=== PATIENT | male | born 1995 | race Caucasian/White ===

== ENCOUNTER 2023-08-10 11:46 | Emergency (ER) | payer OTHER, SELFPAY ==
[2023-08-10 12:04] VITALS: BP 126/69; PULSE 58; RESP 19; TEMP 36.6; O2SAT 98; BMI 22.8
--- NOTE | 2023-08-10 13:03 | ED.DENTAL ---
HPI - Dental/Oral General Chief complaint: Dental/Oral Stated complaint: dental pain Time Seen by Provider: 08/10/23 12:57 Source: patient Mode of arrival: ambulatory Limitations: no limitations History of Present Illness HPI Narrative: 27-year-old male here with complaints of right upper and right lower dental pain for the last 1 week with no known injury or trauma. Patient does not have a dentist. He has been taking Tylenol, using a saltwater gargles with continued pain. No fevers, chills, difficulty breathing, difficulty swallowing. Onset (ago): month(s) Related Data Previous Rx's Medication Instructions Recorded amoxicillin 500 mg tablet 500 mg PO BID #14 tabs 08/10/23 ibuprofen 600 mg tablet 600 mg PO Q8H PRN pain #30 tabs 08/10/23 Allergies Allergy/AdvReac Type Severity Reaction Status Date / Time No Known Allergies Allergy Verified 08/10/23 12:04 Review of Systems Review of Systems: Yes all other systems are reviewed and are negative Constitutional: Constitutional: Reports no additional constitutional complaints, Denies body ache(s), Denies chills, Denies fever(s), Denies headache(s) and Denies weakness Eyes: Eyes: Reports no additional eye complaints and Denies change in vision ENT: Reports system reviewed and no additional complaints, except as documented, Reports dental pain, Denies dizziness, Denies headache(s), Denies nasal congestion, Denies nasal discharge and Denies neck pain Cardiovascular: Cardiovascular: Reports no additional cardiovascular complaints, Denies chest pain, Denies leg edema and Denies dyspnea Respiratory: Respiratory: Reports no additional respiratory complaints, Denies cough and Denies dyspnea Gastrointestinal: Gastrointestinal: Reports no additional gastrointestinal complaints, Denies abdominal pain, Denies diarrhea, Denies nausea and Denies vomiting Genitourinary: Genitourinary: Denies urinary incontinence Musculoskeletal: Musculoskeletal: Reports no additional musculoskeletal complaints, Denies back pain, Denies arthralgias, Denies joint swelling, Denies neck pain, Denies numbness and Denies tingling Integumentary/Breasts: Skin/Breast: Reports system reviewed and no additional complaints, except as docu and Denies rash Neurologic: Reports system reviewed and no additional complaints, except as documented, Denies Abnormal speech present, Denies dizziness, Denies headache(s), Denies numbness, Denies tingling and Denies weakness [facility] Past Medical History Attestation statement: The following information was validated with the patient. Source: old records reviewed and nursing notes reviewed Social History Social History Advance Directives: No Physical Exam Vital Signs: Vital Signs: Last Vital Signs Temp 98 F 08/10/23 12:04 Pulse 58 08/10/23 12:04 Resp 19 08/10/23 12:04 BP 126/69 08/10/23 12:04 Pulse Ox 98 08/10/23 12:04 O2 Del Method Room Air 08/10/23 12:04 BMI result Body Mass Index 22.8 Const: General: cooperative, healthy appearing, comfortable and no acute distress Orientation/consciousness: patient oriented x3 Limitations: no limitations HEENT: Other: No trismus there is caries in the right upper and lower molars. No erythema, swelling, fluctuance on the gum line. Head: Yes normal to inspection Ears: hearing grossly normal bilaterally and TM's normal bilaterally General nose exam: Normal external nose present Face and sinus: Yes normal facial exam Mouth: Normal oral and palatal mucosa present Teeth and gingiva: caries Throat: Yes posterior oropharynx normal, Yes tonsils normal and Yes uvula midline Eyes: General: appearance normal, both eyes and all related structures Pupils: Equal, round and reactive pupils present Neck: Neck: Yes normal visual inspection Chest: Chest palpation & inspection: normal inspection of the chest Resp: Effort & Inspection: normal respiratory effort Auscultation: clear to auscultation bilaterally Cardio: Rate: regular rate Rhythm: regular rhythm Peripheral pulses: Peripheral pulses 2+ throughout GI: Inspection: Yes normal to inspection Palpation (GI): Soft to palpation and nontender Auscultation: normal bowel sounds Back/Spine/Pelvis: Thoracic/Lumbar Spine: thoracic and lumbar spine normal to inspection Skin: General skin exam: no rashes or lesions noted Neuro: General: patient oriented x3, no focal motor deficits and normal sensation to monofilament Cranial nerves: Yes Equal, round and reactive pupils present Cognition (Neuro): normal cognition Speech: No Abnormal speech present Gait exam (Neuro): Normal gait present Motor exam (neuro): 5/5 motor strength present throughout Extrem: General: Yes normal to inspection Medical Decision Making Medical Decision Making MDM Narrative: 27-year-old male here with complaints of right upper and right lower dental pain for the last 1 week with no known injury or trauma. Patient does not have a dentist. He has been taking Tylenol, using a saltwater gargles with continued pain. No fevers, chills, difficulty breathing, difficulty swallowing. There are caries on exam with no evidence of dental abscess, cellulitis, Johnny's angina patient tolerating secretions with no difficulty will be discharged home with antibiotic, and said with recommendations to follow-up with dental clinic. Differential Diagnosis Differential Diagnoses: The differential diagnosis associated with the presentation includes No evidence of Johnny's anginam dental abscess cellulitis there is dental caries Admission/Observation Consideration of admission/observation: Escalation of care including admission/observation considered no need for IV antibiotics and or admission Tests considered The following testing was considered but not selected: no evidence of dental abscess, Johnny's angina, cellulitis necessitating a CT facial bones Prescription Management I considered prescription management with: Antibiotic see discussion above Discharge Plan Discharge Clinical Impression: Toothache Patient Disposition: Home, Self-Care Instructions: Toothache (ED) Additional Instructions: saltwater gargles Soft foods Establish a dentist to follow up with them Prescriptions: New amoxicillin 500 mg tablet 500 mg PO BID Qty: 14 0RF ibuprofen 600 mg tablet 600 mg PO Q8H PRN (Reason: pain) Qty: 30 0RF Referrals: Physician,None [Primary Care Provider] - 1 week Interventions: ED Discharge Assessment Last Done: 08/10/23 13:13 Discharge Date/Time: 08/10/23 13:13
== END 2023-08-10 13:13 | disposition home or self-care (01) ==
PROVIDERS: Emergency Provider Emergency Medicine
DX: K08.89 Other specified disorders of teeth and supporting structures (principal)
CPT/HCPCS: 99282; 99283

== ENCOUNTER 2023-09-06 18:31 | Emergency (ER) | payer OTHER, SELFPAY ==
[2023-09-06 19:38] VITALS: BP 131/77; PULSE 82; RESP 18; TEMP 37.2; O2SAT 99; BMI 22.0
--- NOTE | 2023-09-06 19:38 | ED.UPPEXIN ---
HPI - Extremity Injury (Upper) General Chief Complaint: Extremity Injury, Upper Stated Complaint: RT index finger inj Time Seen by Provider: 09/06/23 21:07 Related Data Previous Rx's Medication Instructions Recorded amoxicillin 500 mg tablet 500 mg PO BID #14 tabs 08/10/23 ibuprofen 600 mg tablet 600 mg PO Q8H PRN pain #30 tabs 08/10/23 Allergies Allergy/AdvReac Type Severity Reaction Status Date / Time No Known Allergies Allergy Verified 09/06/23 19:38 Physical Exam Vital Signs: Vital Signs: Last Vital Signs Temp 98.2 F 09/06/23 20:59 Pulse 86 09/06/23 20:59 Resp 16 09/06/23 20:59 BP 136/78 09/06/23 20:59 Pulse Ox 98 09/06/23 20:59 O2 Del Method Room Air 09/06/23 20:59 BMI result Body Mass Index 22.0 Course Course Course Narrative: This is an RME: Additional HPI, ROS, PE not included below will be deferred to primary provider. Patient is a 27-year-old male, right-hand dominant, who presents emergency department for evaluation of Right index finger injury 6 weeks ago. Smashed finger with a sledgehammer. Has been wearing a splint, but pain and swelling has persisted. Unable to flex the digit, held in full extension. Plan: XR Discharge Plan Discharge Prescriptions: No Action amoxicillin 500 mg tablet 500 mg PO BID Qty: 14 0RF ibuprofen 600 mg tablet 600 mg PO Q8H PRN (Reason: pain) Qty: 30 0RF
[2023-09-06 20:59] VITALS: BP 136/78; PULSE 86; RESP 16; TEMP 36.8; O2SAT 98
--- NOTE | 2023-09-06 21:05 | PC.NURSE ---
pt comes in today after hitting right pointer finger w/ sledge hammer at work 6 weeks ago. swelling/erythema noted to affected site. pt verbalizes that he has not seen a provider since injury. cms intact. peripheral pulses palpable. pt states he has numbness/tingling in right finger. pt denies any other sx at this time.
--- NOTE | 2023-09-06 21:07 | PC.NURSE ---
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
--- NOTE | 2023-09-06 21:14 | ED.EXTPRO ---
HPI - Extremity Problem General Chief complaint: Extremity Injury, Upper Stated complaint: RT index finger inj Time Seen by Provider: 09/06/23 21:07 Source: patient Mode of arrival: ambulatory Limitations: no limitations History of Present Illness HPI Narrative: Patient is a 27-year-old male, right-hand dominant, who presents emergency department for evaluation of Right index finger injury 6 weeks ago (July 30). Smashed finger with a sledgehammer. Has been wearing a splint, but pain and swelling has persisted. Unable to flex the digit, held in full extension. Related Data Previous Rx's Medication Instructions Recorded amoxicillin 500 mg tablet 500 mg PO BID #14 tabs 08/10/23 ibuprofen 600 mg tablet 600 mg PO Q8H PRN pain #30 tabs 08/10/23 Allergies Allergy/AdvReac Type Severity Reaction Status Date / Time No Known Allergies Allergy Verified 09/06/23 19:38 Review of Systems Review of Systems: all other systems are reviewed and are negative Constitutional: Reports as per HPI and Reports no additional constitutional complaints Eyes: Reports as per HPI and Reports no additional eye complaints Reports system reviewed and no additional complaints, except as documented Cardiovascular: Reports as per HPI and Reports no additional cardiovascular complaints Respiratory: Reports as per HPI and Reports no additional respiratory complaints Gastrointestinal: Reports as per HPI and Reports no additional gastrointestinal complaints Genitourinary: Reports no additional female genitourinary complaints Musculoskeletal: Reports no additional musculoskeletal complaints Skin/Breast: Reports system reviewed and no additional complaints, except as docu Psychiatric: Reports no additional psychiatric complaints Endocrine: Reports no additional endocrine complaints Hematologic/Lymphatic: Reports no additional hematologic/lymphatic complaints Allergic/Immunologic: Reports no additional allergic/immunologic complaints Reports system reviewed and no additional complaints, except as documented and Reports Abnormal speech present Physical Exam Vital Signs: Vital Signs: Last Vital Signs Temp 98.2 F 09/06/23 20:59 Pulse 86 09/06/23 20:59 Resp 16 09/06/23 20:59 BP 136/78 09/06/23 20:59 Pulse Ox 98 09/06/23 20:59 O2 Del Method Room Air 09/06/23 20:59 BMI result Body Mass Index 22.0 Vital signs have been reviewed and appear to be correct. Blood pressure elevated. Heart rate normal. Respiratory rate normal. Temperature normal. Oxygen saturation normal. Appearance: Alert. Oriented X3. No acute distress. Head: Normal external exam. Normocephalic. Atraumatic. No [place] signs noted. No raccoon eyes noted Eyes: PERRLA. EOMI. Conjunctiva and sclera normal. Eyelids normal. ENT: TM's Normal. Pharynx normal. Uvula midline. Moist mucous membranes. No trismus noted. No drooling noted. No muffled voice noted. Neck: Normal inspection. Neck supple. FROM. No adenopathy. Thyroid Normal. No meningeal signs. No neck mass noted. CVS: Normal heart rate and rhythm. Heart sound normal. No murmurs noted. Pulses normal throughout. Respiratory: No respiratory distress. Painless inspiration. Breath sounds normal. No wheezes/rales/rhonchi noted. Chest nontender. No accessory muscle usage noted or decreased air movement noted. Abdomen: Soft and nontender. Bowel sounds normal in all 4 quadrants. No distention noted. No organomegaly noted. No visible injury noted. Back: No CVA tenderness. Full range of motion noted. Skin: Skin warm and dry. Normal skin color. Normal skin turgor. No rashes/lesions/lacerations noted. Extremities: right hand: Index finger held in extension cannot flex PIP or DIP joints. no palpable deformity or step of the finger, no laceration, cap refill is less than 2 seconds. sensation light touch and 2 point discrimination is intact on the finger. Neuro: Oriented X 3. Cranial nerve exam: II-XII are grossly intact No motor deficit. No sensory deficit. Reflexes normal. Course Course Course Narrative: right index injury 6 weeks ago at work likely tendon injury. Will send the patient to Dr. Hylton. Medical Decision Making Differential Diagnosis Differential Diagnoses: The differential diagnosis associated with the presentation includes ( right index fracture, dislocation, ligamentous injury.) Admission/Observation Consideration of admission/observation: Escalation of care including admission/observation considered Independent Interpretation I performed an independent interpretation of an: Plain X-Ray ( Right hand: No acute fracture) Radiology Impression Discussion of test interpretation with radiology: I have reviewed the radiologist's reading. (No acute fracture or malalignment. Mild soft tissue swelling around the index digit. ) Discharge Plan Discharge Clinical Impression: Finger sprain Patient Disposition: Home, Self-Care Instructions: Finger Sprain (ED) Prescriptions: No Action amoxicillin 500 mg tablet 500 mg PO BID Qty: 14 0RF ibuprofen 600 mg tablet 600 mg PO Q8H PRN (Reason: pain) Qty: 30 0RF Referrals: Lisset Hylton MD [Physician] -
== END 2023-09-06 21:50 | disposition home or self-care (01) ==
PROVIDERS: Emergency Provider Emergency Medicine
DX: S63.610A Unspecified sprain of right index finger, initial encounter (principal); W22.8XXA Striking against or struck by other objects, initial encounter; Y93.9 Activity, unspecified; Y92.9 Unspecified place or not applicable; Y99.9 Unspecified external cause status
CPT/HCPCS: 73120; 99283

== ENCOUNTER 2023-09-17 12:47 | Outpatient (AMB) | payer OTHER, SELFPAY ==
--- NOTE | 2023-09-17 13:10 | A.OFFVIS_ITS ---
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 States on Jul 30 2023 while working, he smashed his finger with a sledgehammer. Seen in ED where his finger was splinted. Currently he has stiffness and pain if he removes his splint more than 1 hour. Allergies No Known Allergies Allergy (Verified 09/17/23 13:28) HPI DESIGN TEACHER-right index FC, dislocation, ligamentous injury HPI Details Brennon is a 27 year old right hand dominant man who presents with complaints of right index finger pain and swelling, S/P crush injury. He struck his index finger with a sledgehammer on ~07/30/23, and did not seek treatment until he was seen in the ED on 09/06/23. He complains of pain, swelling, and stiffness in his right index finger. he says he is unable to bend his finger since the injury and has been wearing a finger splint full-time since his injury. He was fitted for a new finger splint while in the ED, and says he has increased pain & stiffness if he removes the splint longer than ~1 hour He denies any numbness but says he feels slight pins & needles when touching his finger Review of Systems Const All systems reviewed & are unremarkable except as noted in HPI and below Physical Exam Vital Signs: BMI result Body Mass Index 22.0 Const General: cooperative, healthy appearing and no acute distress Orientation/consciousness: patient oriented x3 HEENT Head: Yes normocephalic and Yes atraumatic Eyes EOM: EOMs intact bilaterally Resp Effort & Inspection: normal respiratory effort and able to speak in complete sentences Cardio Jugular venous distension: no JVD Skin General skin exam: turgor normal Rashes: no rashes Neuro General: patient oriented x3 Extrem Other: Evaluation of Right Upper Extremity: The patient is alert, oriented, and in no acute distress Neuro: Median, Ulnar, Radial nerves motor and sensory intact and sensation is normal to the tips of all digits Vascular: Cap refill brisk ROM: He is seen today with his index finger splinted and held in full extension After removing his splint there was some atrophy of the finger soft tissues, likely from 24/7 splinting for ~6 weeks Initially He demonstrated only ~45 degrees of flexion at the MCP joint with no active flexion at the PIP or DIP joints We worked on ROM exercises today in clinic, and before leaving clinic he was able to actively bring his fingers close to a fist and touch the thenar mass with his index fingertip. He now has good PIP joint motion and still had some stiffness in the DIP joint. Demonstrated good active FDS & FDP tendon function before leaving clinic I did want to push him any further today, and he assured me he would work on these range of motion exercises at home. Skin: No lacerations or abrasions. General: No Ecchymosis. No Erythema or evidence of infection. Radiographs: 3 views of the right hand, with attention to the index finger, from 09/06/23 were reviewed by me today in clinic. They show no fractures or dislocations. Psych Appearance: grossly normal Affect: normal affect Attitude: cooperative Office Procedures Fracture Care Details: No fracture, manual therapy 15+ minutes [id number] Fracture Billing Code: Fracture Billing Code Assessment & Plan Assessment & Plan (1) Stiffness of finger joint of right hand: Code(s): M25.641 - Stiffness of right hand, not elsewhere classified Plan Assessment & Plan: 1 Right index finger stiffness S/P crush injury, DOI: ~07/30/23 from a sledgehammer Followed by ~7 weeks 24/7 splinting Good active FDP & FDS tendon function demonstrated after working on range of motion exercises in clinic I educated him about this condition I discussed operative and non-operative treatment options He is to completely discontinue his finger splint at this time He will work on gentle ROM exercises at home I ordered OT hand therapy to work on ROM and normalizing hand function He can follow up prn Greater than 15 minutes was spent working on hand therapy exercises in clinic today. Scribed for Lisset Hylton MD by Kwasi Barbosa certified court/medical interpreter, on 09/17/23 at 1:40 PM, EST. Orders: Orders OT Evaluation and Treatment Today M25.641 - Stiffness of right hand, not elsewhere classified Coding Level of Care Code New Pt Level 3 (85651) Diagnoses Stiffness of finger joint of right hand M25.641 CPT Codes Fracture Care - Fracture Billing Code: Fracture Billing Code ([id number])
[2023-09-17 13:11] VITALS: BMI 22.0
== END 2023-09-17 13:55 | disposition home or self-care (01) ==
PROVIDERS: Visit Provider Orthopaedic Surgery
DX: M25.641 Stiffness of right hand, not elsewhere classified (principal)
CPT/HCPCS: 99203

== ENCOUNTER → 2023-09-17 12:47 | Outpatient (BNVA) | payer OTHER, SELFPAY | PROVIDERS: Visit Provider Orthopaedic Surgery ==

== ENCOUNTER 2025-07-30 13:45 | Emergency (ER) | payer SELFPAY ==
[2025-07-30 14:01] VITALS: BP 130/64; PULSE 70; RESP 16; TEMP 36.4; O2SAT 100; BMI 23.6
--- NOTE | 2025-07-30 14:10 | ED_ITS ---
HPI - General Adult General Chief complaint: Skin/Abscess/Foreign Body Stated complaint: infection on back of leg Time Seen by Provider: 07/30/25 14:08 Source: patient, RN notes reviewed and old records reviewed Mode of arrival: ambulatory Limitations: no limitations History of Present Illness ED Provider: Messi CLEMENTS narrative: 29-year-old male presents for evaluation of in formalin bump to his left leg. He 1st noticed yesterday. Areas painful can touch his knee. There are no open wounds or anything. 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 His pain is mild, 2/10 Related Data Previous Rx's ?Medication ?Instructions ?Recorded ibuprofen 600 mg tablet 600 mg PO Q8H PRN pain #30 t abs 08/10/23 doxycycline hyclate 100 mg tablet 100 mg PO BID #14 ta bs 07/30/25 Allergies Allergy/AdvReac Type Severity Reaction Status Date / Time No Known Allergies Allergy Verified 07/30/25 14:02 Review of Systems 2 Constitutional: Constitutional: Denies body ache(s), Denies chills, Denies fever(s) and Denies headache(s) Eyes: Eyes: Denies blurry vision ENT: Denies dizziness, Denies dry mouth and Denies headache(s) Cardiovascular: Cardiovascular: Denies chest pain and Denies dyspnea on exertion Respiratory: Respiratory: Denies cough and Denies dyspnea on exertion Gastrointestinal: Gastrointestinal: Denies abdominal pain Integumentary/Breasts: Skin/Breast: Reports erythema and Reports rash Neurologic: Denies dizziness and Denies headache(s) Psychiatric: Psychiatric: Denies anxiety PMFSH Social History Social History Advance Directives: No Advance Directives Information Provided: No Physical Exam ED Vital Signs: Vital Signs - 24 hr 07/30/25 14:01 Temperature 97.6 F Pulse Rate 70 Respiratory Rate 16 Blood Pressure 130/64 Pulse Oximetry 100 Oxygen Delivery Method Room Air BMI result Body Mass Index 23.6 Const General: healthy appearing, comfortable, no acute distress, alert and awake Nutritional Appearance: well nourished Orientation/consciousness: patient oriented x3 HENMT Head: Yes normocephalic and Yes atraumatic Throat: Yes posterior oropharynx normal Eyes Eyelids: Yes eyelids normal Conjunctivae: conjunctivae normal Sclerae: sclerae normal Corneas: corneas normal Pupils: Equal, round and reactive pupils present EOM: EOMs intact bilaterally Neck Neck: Yes full ROM Resp Effort & Inspection: normal respiratory effort, able to speak in complete sentences and not labored Skin Other: There is an approximately 2 cm area of erythema with well demarcated borders. The central area is indurated, there is no fluctuance. No open wounds or lesions. General skin exam: elasticity normal Neuro General: patient oriented x3 Cranial nerves: Yes Equal, round and reactive pupils present and Yes Bilaterally intact EOM present Cognition (Neuro): normal cognition Extrem Other: Moving all extremities well without any obvious deformities Medical Decision Making Medical Decision Making MDM Narrative: 29-year-old healthy male presents for evaluation of a small area of redness to his left leg. This is an atraumatic area. There appears to be a mild cellulitis or folliculitis has been palpation. 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 There is some concern for Lyme disease. We will treat his cellulitis with doxycycline and warm compresses. Labs were drawn to test for Lyme disease. Clinically there was no abscess requiring drainage and no evidence of systemic infection Differential Diagnosis Differential Diagnoses: The differential diagnosis associated with the presentation includes Cellulitis Folliculitis Lyme disease Erythema migrans SSS Lab Data 07/30/25 14:16 07/30/25 14:16 Labs: Lab Results 07/30/25 Range/Units 14:16 WBC 7.3 (4.8-10.8) X10*3/uL RBC 4.93 (4.60-5.80) X10*6/uL Hgb 15.1 (14.0-18.0) g/dl Hct 44.4 (42.0-52.0) % MCV 90.1 (80.0-98.0) fL MCH 30.6 (27.0-33.0) pg MCHC 34.0 (31.0-36.0) g/dl RDW 12.2 (11.0-16.0) % Plt Count 232 (160-400) X10*3/uL MPV 10.7 (9.4-12.4) fL Immature Gran % (Auto) 0.1 (0.0-0.4) % Neut % (Auto) 49.2 (45-73) % Lymph % (Auto) 40.0 (20-40) % [place] % (Auto) 7.4 (2-11) % Eos % (Auto) 2.6 (0-4) % Baso % (Auto) 0.7 (0-2) % Lymph # (Auto) 2.9 (1.2-4.9) X10*3/uL [place] # (Auto) 0.5 (0.1-1.2) X10*3/uL Eos # (Auto) 0.2 (0.0-0.4) X10*3/uL Baso # (Auto) 0.1 (0.0-0.2) X10*3/uL Abs Immat Gran (auto) 0.01 (0.00-0.03) X10*3/uL Absolute Neuts (auto) 3.6 (2.0-8.3) x10*3/uL Absolute Nucleated RBC 0.000 (0.0-0.012) X10*3/uL Nucleated RBC % (auto) 0.0 (0.0-0.2) /100WBC Discharge Plan Discharge Clinical Impression: Cellulitis of left leg Patient Disposition: Home, Self-Care Instructions: Cellulitis (ED) Additional Instructions: You appear to have a mild skin infection called cellulitis. There was no evidence of abscess and needs to be drained. Given that you work outside you were tested for Lyme disease. The doxycycline will cover mild skin infections as well as Lyme disease but we will call you if you are Positive for Lyme disease Follow up with your primary doctor, return for new or worsening symptoms Prescriptions: New doxycycline hyclate 100 mg tablet 100 mg PO BID Qty: 14 0RF No Action ibuprofen 600 mg tablet 600 mg PO Q8H PRN (Reason: pain) Qty: 30 0RF Print Language: [place]
[2025-07-30 14:22] LABS: MANUAL DIFF FLAG NO
[2025-07-30 14:25] LABS: Hematocrit 44.4 % (42.0-52.0); Hemoglobin 15.1 g/dl (14.0-18.0); Imm Gran Abs Auto 0.01 X10*3/uL (0.00-0.03); Imm Gran Pct Auto 0.1 % (0.0-0.4); Lymphocytes Absolute Auto 2.9 X10*3/uL (1.2-4.9); Mean Corpuscular HGB Conc 34.0 g/dl (31.0-36.0); Mean Corpuscular Hemoglobin 30.6 pg (27.0-33.0); Mean Corpuscular Volume 90.1 fL (80.0-98.0); NRBC Abs Auto 0.000 X10*3/uL (0.0-0.012); NRBC Pct Auto 0.0 /100WBC (0.0-0.2); Platelet Count 232 X10*3/uL (160-400); Red Blood Count 4.93 X10*6/uL (4.60-5.80); White Blood Count 7.3 X10*3/uL (4.8-10.8)
--- OUTSIDE RECORDS SUMMARY | 2025-07-30 14:25 | XMS_ITS ---
Author Name [facility] Organization Unknown Care Team Organization Name Specialty Phone Email Start Date End Da lakai [facility] 02/06/2023 07/20/2024 [facility] 10/09/2022 07/20/20 24
[2025-07-30 14:43] LABS: Anion Gap 13 (12-20); Blood Urea Nitrogen 15 mg/dL (9-16); Calcium 9.4 mg/dL (8.4-10.2); Carbon Dioxide 25 mmol/L (22-29); Chloride 107 mmol/L (96-108); Creatinine Clr Calc Pharmacy 145.3; Estimated Glomerular Filt Rate > 60; Potassium 4.0 mmol/L (3.3-5.1); Sodium 141 mmol/L (135-145)
[2025-07-30 15:12] VITALS: BP 130/64; PULSE 70; RESP 16; TEMP 36.4; O2SAT 100
[2025-07-31 06:33] LABS: Lyme Abs Screen <0.90 index
[2025-07-31 11:19] LABS: Lyme Disease DNA PCR NOT DETECTED (NOT DETECTED)
== END 2025-07-30 15:12 | disposition home or self-care (01) ==
PROVIDERS: Physician Assistant; Emergency Provider Emergency Medicine
DX: L03.116 Cellulitis of left lower limb (principal); M79.605 Pain in left leg
CPT/HCPCS: 36415; 80048; 85025; 86617; 86618; 99282; 99283

== ENCOUNTER 2025-09-14 17:16 | Emergency (ER) | payer SELFPAY ==
--- NOTE | ~2025-09-14 | XR_ITS ---
CLINICAL HISTORY: chest pain 2 view chest x-ray Comparison: None provided Findings: No consolidation or effusion. Heart size is normal. No acute fracture. IMPRESSION: 1. No acute findings. This document has been electronically signed by: Samira Anaya MD on 09/14/2025 18:12:19
--- NOTE | 2025-09-14 17:42 | ED_ITS ---
HPI - General Adult General Chief complaint: Chest Pain Stated complaint: Difficulty breathing, hurts to breath Time Seen by Provider: 09/14/25 21:56 Source: patient Mode of arrival: ambulatory Limitations: no limitations History of Present Illness ED Provider: Timur Lemus HPI narrative: 29 yold male present s to the ED for chest pain that is worse on movement and inspiration for the past 3 days. patient does heavy lifting at work. patient denies any leg swelling, calf pain, recent surgyery or recent travel. Related Data Previous Rx's ?Medication ?Instructions ?Recorded ibuprofen 600 mg tablet 600 mg PO Q8H PRN pain #30 t abs 08/10/23 doxycycline hyclate 100 mg capsule 100 mg PO BID #14 c aps 07/30/25 doxycycline hyclate 100 mg tablet 100 mg PO BID #14 ta bs 07/30/25 naproxen 500 mg tablet 500 mg PO BID PRN pain #14 t abs 09/15/25 Allergies Allergy/AdvReac Type Severity Reaction Status Date / Time No Known Allergies Allergy Verified 09/14/25 17:44 Review of Systems 2 Review of Systems: Pleurisy ,chest pain, chest pain on movement of torso Yes all other systems are reviewed and are negative [facility] Social History Social History Smoked in Last 30 Days: No Use of substances other than those prescribed or required for medical reasons: Yes Substance Use Type: IV Drugs Advance Directives: No Advance Directives Information Provided: No Do you have a plan to hurt others: No Plan Physical Exam ED Vital Signs: Vital Signs - 24 hr 09/14/25 17:43 09/14/25 21:41 09/15/25 00:42 Temperature 98 F 98.2 F 98.0 F Pulse Rate 61 81 62 Respiratory Rate 18 16 Blood Pressure 149/80 H 141/82 H 118/76 Pulse Oximetry 100 100 98 Oxygen Delivery Method Room Air Room Air Room Air BMI result Body Mass Index 24.3 Const General: cooperative, healthy appearing, comfortable, no acute distress, well developed, alert, awake and Physically active Orientation/consciousness: patient oriented x3 HENMT Head: Yes normal to inspection, Yes No palpable skull fracture present, Yes normocephalic and Yes atraumatic Eyes General: appearance normal, both eyes and all related structures Neck Neck: Yes normal visual inspection, Yes full ROM, Yes no lymphadenopathy, Yes no meningeal signs, Yes trachea midline, Yes supple, No anterior neck swelling and No tender Chest Chest palpation & inspection: normal inspection of the chest and normal palpation of entire chest wall Resp Effort & Inspection: normal respiratory effort and able to speak in complete sentences Auscultation: clear to auscultation bilaterally Cardio Jugular venous distension: no JVD Heart sounds: S1 normal heart sound present and S2 normal heart sound present GI Inspection: Yes normal to inspection Palpation (GI): Soft to palpation, not firm, nontender, no guarding and not rigid General: Yes no CVA tenderness Back/Spine/Pelvis Back: no CVA tenderness and No back tenderness Skin General skin exam: no rashes or lesions noted, elasticity normal and turgor normal Neuro General: patient oriented x3, gait normal, tone normal, moves all extremities, Normal light touch and pain sensation, no meningeal signs, no focal motor deficits and CN's II-XI intact bilaterally Extrem Other: bilateral lower extremity negative for swelling, pitting edmea, or calf tenderness. General: Yes normal to inspection, Yes full ROM and Yes capillary refill normal Psych Appearance: grossly normal, well kempt and not disheveled Course Course Course Narrative: This is a rapid medical exam performed by Art Jauregui NP: Additional HPI, ROS, PE not included below will be deferred to primary provider. Patient is a 29y/o M presenting with complaint of upper chest pain since Saturday. Progressively worsening, goes to back, worse with leaning forward. Plan: EKG, labs, CXR Medications Administered Discontinued Medications Generic Name Dose Route Start Last Admin Trade Name Benjamin PRN Reason Stop Dose Admin Ibuprofen 800 mg 09/15/25 00:20 09/15/25 00:27 Ibuprofen 800 Mg Tablet PO 09/15/25 00:21 800 mg ONCE ONE Administration Medical Decision Making Medical Decision Making [facility] Narrative: [age] year male presents to ED for chest wall pain that is worse on movement and also onto inspiration. Patient denies any leg swelling, calf pain, coughing up blood, recent long travel or recent surgery. Patient denies any trauma. 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 X-ray negative pneumonia. Troponin is negative. D-dimer negative. Perc score is 0. Not suspecting CHF, [place], PE, pericarditis, myocarditis, or any other life-threatening etiology. Differential Diagnosis Differential Diagnoses: The differential diagnosis associated with the presentation includes (Patient is) Admission/Observation Consideration of admission/observation: Escalation of care including admission/observation considered Lab Data MDM Lab Attestation statement: I reviewed the patient's lab results. 09/14/25 18:18 09/14/25 18:18 Labs: Lab Results 09/14/25 09/14/25 Range/Units 18:18 22:35 WBC 10.8 (4.8-10.8) X10*3/uL RBC 5.17 (4.60-5.80) X10*6/uL Hgb 15.5 (14.0-18.0) g/dl Hct 46.5 (42.0-52.0) % MCV 89.9 (80.0-98.0) fL MCH 30.0 (27.0-33.0) pg MCHC 33.3 (31.0-36.0) g/dl RDW 11.9 (11.0-16.0) % Plt Count 270 (160-400) X10*3/uL MPV 10.8 (9.4-12.4) fL Immature Gran % (Auto) 0.4 (0.0-0.4) % Neut % (Auto) 64.3 (45-73) % Lymph % (Auto) 26.5 (20-40) % Sioux % (Auto) 7.6 (2-11) % Eos % (Auto) 0.8 (0-4) % Baso % (Auto) 0.4 (0-2) % Lymph # (Auto) 2.9 (1.2-4.9) X10*3/uL Sioux # (Auto) 0.8 (0.1-1.2) X10*3/uL Eos # (Auto) 0.1 (0.0-0.4) X10*3/uL Baso # (Auto) 0.0 (0.0-0.2) X10*3/uL Abs Immat Gran (auto) 0.04 H (0.00-0.03) X10*3/uL Absolute Neuts (auto) 6.9 (2.0-8.3) x10*3/uL Absolute Nucleated RBC 0.000 (0.0-0.012) X10*3/uL Nucleated RBC % (auto) 0.0 (0.0-0.2) /100WBC PT 11.6 (10.9-12.4) SEC INR 1.0 (0.9-1.1) D-Dimer High Sensitivty < 150 NG/ML Sodium 143 (135-145) mmol/L Potassium 3.9 (3.3-5.1) mmol/L Chloride 106 (96-108) mmol/L Carbon Dioxide 29 (22-29) mmol/L Anion Gap 12 (12-20) BUN 8 L (9-16) mg/dL Creatinine 0.84 (0.5-1.4) mg/dL Estim Creat Clear Calc 125.5 Estimated GFR > 60 Random Glucose 86 (60-115) mg/dL Calcium 10.0 D (8.4-10.2) mg/dL Total Bilirubin 0.4 (0.0-1.0) mg/dL AST 31 (5-37) U/L ALT 32 (0-40) U/L Alkaline Phosphatase 54 (39-117) U/L Troponin I High Sens < 2.7 < 2.7 (<3.5-35.0) ng/L Total Protein 7.7 (6.5-8.0) g/dL Albumin 5.3 H (3.5-5.0) g/dL Independent Interpretation I performed an independent interpretation of an: EKG (Sinus Adonis) and Plain X- Ray Radiology Impression Discussion of test interpretation with radiology: I have reviewed the radiologist's reading. Independent Historian Clinical information obtained from an independent historian. History obtained from or confirmed by: Other (Patient) Discharge Plan Discharge Clinical Impression: Chest pain Patient Disposition: Home, Self-Care Instructions: Chest Pain (ED), Chest Wall Pain (ED) Additional Instructions: Labs EKG imaging came back reassuring. Recommend follow up with primary care provider. Return to the ED immediately for any coughing up blood, rash, leg swelling, calf pain, shortness of breath on inspiration, dizziness, weakness, or any other concerning symptoms. Prescriptions: New naproxen 500 mg tablet 500 mg PO BID PRN (Reason: pain) Qty: 14 0RF No Action doxycycline hyclate 100 mg tablet 100 mg PO BID Qty: 14 0RF doxycycline hyclate 100 mg capsule 100 mg PO BID Qty: 14 0RF ibuprofen 600 mg tablet 600 mg PO Q8H PRN (Reason: pain) Qty: 30 0RF Stand Alone Forms: Work/School Release Interventions: ED Discharge Assessment Last Done: 09/15/25 00:42 Discharge Date/Time: 09/15/25 00:43 Print Language: Belarusian
[2025-09-14 17:43] VITALS: BP 149/80; PULSE 61; RESP 18; TEMP 36.6; O2SAT 100; BMI 24.3
--- NOTE | 2025-09-14 17:43 | ECG_ITS ---
Test Reason : CP Blood Pressure : */* mmHG Vent. Rate : 59 BPM Atrial Rate : 59 BPM P-R Int : 146 ms QRS Dur : 100 ms QT Int : 400 ms P-R-T Axes : 53 45 46 degrees QTcB Int : 396 ms Sinus bradycardia Incomplete right bundle branch block Borderline ECG No previous ECGs available Referred By: Lisa Jauregui Electronically Signed By: Daniel Marcelino
[2025-09-14 18:27] LABS: MANUAL DIFF FLAG NO
[2025-09-14 18:30] LABS: Hematocrit 46.5 % (42.0-52.0); Hemoglobin 15.5 g/dl (14.0-18.0); Imm Gran Abs Auto 0.04 X10*3/uL (0.00-0.03); Imm Gran Pct Auto 0.4 % (0.0-0.4); Lymphocytes Absolute Auto 2.9 X10*3/uL (1.2-4.9); Mean Corpuscular HGB Conc 33.3 g/dl (31.0-36.0); Mean Corpuscular Hemoglobin 30.0 pg (27.0-33.0); Mean Corpuscular Volume 89.9 fL (80.0-98.0); NRBC Abs Auto 0.000 X10*3/uL (0.0-0.012); NRBC Pct Auto 0.0 /100WBC (0.0-0.2); Platelet Count 270 X10*3/uL (160-400); Red Blood Count 5.17 X10*6/uL (4.60-5.80); White Blood Count 10.8 X10*3/uL (4.8-10.8)
[2025-09-14 18:43] LABS: INTERNATIONAL NORM RATIO 1.0 (0.9-1.1); Prothrombin Time 11.6 SEC (10.9-12.4)
[2025-09-14 19:03] LABS: Alanine Aminotransferase 32 U/L (0-40); Albumin Level 5.3 g/dL (3.5-5.0); Alkaline Phosphatase 54 U/L (39-117); Anion Gap 12 (12-20); Aspartate Amino Transferase 31 U/L (5-37); Blood Urea Nitrogen 8 mg/dL (9-16); Calcium 10.0 mg/dL (8.4-10.2); Carbon Dioxide 29 mmol/L (22-29); Chloride 106 mmol/L (96-108); Creatinine Clr Calc Pharmacy 125.5; Estimated Glomerular Filt Rate > 60; Potassium 3.9 mmol/L (3.3-5.1); Sodium 143 mmol/L (135-145); Total Protein 7.7 g/dL (6.5-8.0)
[2025-09-14 19:20] LABS: Troponin-I High Sensitivity < 2.7 ng/L (<3.5-35.0)
[2025-09-14 21:41] VITALS: BP 141/82; PULSE 81; TEMP 36.8; O2SAT 100
--- OUTSIDE RECORDS SUMMARY | 2025-09-14 21:56 | XMS_ITS | Clinical Summary ---
Author Organization [facility] Address [address] [place] [address] Care Team Providers Care Thread Trimmer Name Role Phone Fred Mcgee MD Primary Care Provider Allergies No known active allergies Medications Medication Sig Dispensed Refills Start Date End Date Status Clotrimazole 1 % Ointment Apply 0.5 Inches topically 2 times daily. 14 g 0 10/12/2016 Active ketoconazole (NIZORAL) 2 % shampoo Apply to affected area, leave on for 5 minutes and rinse clean. May repeat dose 3 times 120 mL 0 02/12/2020 Active aluminum chloride (DRYSOL) 20 % external solution Apply once daily at bedtime, once excessive sweating has stopped okay to apply once or twice weekly. Rinse in the morning 60 mL 0 12/09/2020 Active Active Problems Problem Noted Date Hyperhidrosis 06/14/2020 Pilonidal abscess 12/05/2014 Overview: Drained by pedi surgery 12/15 Resolved Problems Problem Noted Date Resolved Date Acne 07/30/2011 02/12/2020 Overview: Topical clinda and tretinoin 11/09 Benzamycin gel 11/11 02/11 - uses otc Unspecified hearing loss 07/24/2006 011 Overview: left ear, detected age 3 Passed screen 911 IMO update innocent heart murmur 04/01/1997 02/12/2020 Overview: innocent murmur Unspecified otitis media 020 Overview: , , 09/08 IMO update Acute sinusitis 02/12/2020 Overview: , 08/04, 02/02, 06/06 Immunizations Name Administration Dates Next Due DTP 07/31/1996,04/30/1996,02/27/1996 DTaP 08/02/2001,06/29/1997 HIB 04/27/1997, 6,04/30/1996, 996 Hepatitis B-3 Dose (<19yrs) 08/14/1996, 6,1995 Influenza (> 6 Months) 11/18/2009,09/28/2008 Influenza H1N1 Pandemic Flu Vaccine 11/18/2009 MMR (Plibecf-Dirxi-Whrfkhv) 05/17/2000, 7 Meningococcal (Menactra) 02/26/2013,09/28/2008 Polio (IPV) 08/02/2001 Polio (OPV) 06/29/1997,04/30/1996,02/27/1996 Tdap 06/14/2020,09/28/2008 Varicella 11/18/2009,06/29/1997 Family History Medical History Relation Name Comments Alcohol and Other Drug Abuse Father marijuana No Known Problems Maternal Grandfather Thyroid Disorder Maternal Grandmother MS Asthma Mother ETOH abuse, scrap handler ck cocaine use No Known Problems Paternal Grandfather Stroke Paternal Grandmother high ch olesterol, HTN Relation Name Status Comments Father Alive 03/03/1975 beatrice hew Maternal Grandfather Maternal Grandmother Alive Mother Alive 06/04/1977 tammy hilario Paternal Grandfather Paternal Grandmother Alive Sister Alive katie rincon Social History Tobacco Use Types Packs/Day Years Used Date Smoking Tobacco: Former Smokeless Tobacco: Never Alcohol Use Standard Drinks/Week Comments No 0 (1 standard drink = 0.6 oz pur e alcohol) Sex Assigned at Date Recorded Not on file Last Filed Vital Signs Vital Sign Reading Time Taken Comments Blood Pressure 100/56 06/14/2020 2:58 PM EDT Pulse 60 06/14/2020 2:58 PM EDT Temperature 36.2 C (97.1 F) 06/14/2020 2:58 PM EDT Respiratory Rate 12 06/14/2020 2:58 PM EDT Oxygen Saturation - - Inhaled Oxygen Concentration - - Weight 64 kg (141 lb) 06/14/2020 2:58 PM EDT Height 170.2 cm (5' 7 ) 06/14/2020 2:58 PM EDT Body Mass Index 22.08 06/14/2020 2:58 PM EDT Plan of Treatment Health Maintenance Due Date Last Done Comments Covid-19 Vaccine (#1) 06/27/1996 CHOLESTEROL SCREENING 10/08/2018 10/08/2013 BMI CHECK/ADVISE 12/02/2024 10/22/2016, , 02/20/2013, Additional history exists DEPRESSION SCREENING/FOLLOWUP 12/02/2024 05/26/2020 SOCIAL NEEDS SCREENING 12/02/2024 05/26/2020 BASELINE HEALTH EXAM 18-39 06/14/202506/14 (Completed), 06/14/2020, 10/22/2016 INFLUENZA (#1) 2025 11/18/2009, 09/28/2008 DTAP/TDAP/TD (8 - Td or Tdap) 06/14/2030 (Completed), 06/14/2020, 09/28/2008, Additional history exists PNEUMOCOCCAL VACCINE FOR HIG H RISK PATIENTS (#1) 2060 Care Teams Thread Trimmer Relationship Specialty Start Date End Date Fred Mcgee MD [address] [place] [id number] PCP - General Internal Medicine 11/29/23
[2025-09-14 22:44] LABS: D Dimer High Sensitivity < 150 NG/ML
[2025-09-14 23:06] LABS: Troponin-I High Sensitivity < 2.7 ng/L (<3.5-35.0)
[2025-09-15 00:42] VITALS: BP 118/76; PULSE 62; RESP 16; TEMP 36.7; O2SAT 98
== END 2025-09-15 00:43 | disposition home or self-care (01) ==
PROVIDERS: Physician Assistant; Registered Nurse Emergency; Emergency Provider Emergency Medicine Emergency Medical Services
DX: R07.9 Chest pain, unspecified (principal); R00.1 Bradycardia, unspecified; I45.10 Unspecified right bundle-branch block
CPT/HCPCS: 36415; 71046; 80053; 84484; 85025; 85379; 85610; 93005; 99283; 99285

== ENCOUNTER → 2025-09-14 17:43 | Outpatient (BNV) | payer SELFPAY | PROVIDERS: Emergency Provider Emergency Medicine Emergency Medical Services; Visit Provider Internal Medicine Cardiovascular Disease | DX: I45.10 Unspecified right bundle-branch block (principal); R00.1 Bradycardia, unspecified | CPT/HCPCS: 93010 ==

== ENCOUNTER → 2025-09-14 17:44 | Outpatient (BNV) | payer SELFPAY | PROVIDERS: Visit Provider Radiology Diagnostic Radiology | DX: R07.9 Chest pain, unspecified (principal) | CPT/HCPCS: 71046 ==